=== PATIENT | female | born 1995 | race Caucasian/White ===

== ENCOUNTER 2016-11-12 10:21 | Inpatient (IN) | payer OTHER ==
[2016-11-12 11:25] VITALS: BMI 31.6
[2016-11-12] MEDS ORDERED: Lactated Ringer's 1,000 ML IV SCH ×2 (11:25→11:30)
--- NOTE | 2016-11-12 11:25 | OBADHP ---
Datetime: 11/12/2016 11:23 Admit Comment, IP Provider: 21yo edc 11/15 by 8wk us @ 39.4wks w/ c/o srom @ 8:45 and onset of c txs at same time. Pt is a late tranfer of care to DR Morris gynhx: LGSIL pmhx: denies pshx:denies nkda medic: pnv shx: denies etoh, drugs or tobacco I: 39+wks srom labor onset P: admit pt declines pain management Datetime: 11/12/2016 11:16 Pelvic Type - PN: Adequate Extremities - PN: Normal Abdomen - PN: Normal Back - PN: Normal Lungs - PN: Normal Heart - PN: Normal Neurologic - PN: Normal HEENT - PN: Normal Presentation-Admit: Vertex FHR - Baseline A Provider: 130 Amniotic Fluid Color, Provider: Clear Membranes, Provider: Ruptured Comments, ACOG Physical Exam: neg: gbs, hiv, rpr, hepB ri,vzi O+ Pool Provider: Positive Vital Signs Provider: Within Normal Limits IP Chief Complaint: Uterine contractions; Suspected ruptured membranes NICHD Variability Prov Fetus A: Moderate 6-25bpm NICHD Accel Fetus A IP Provider: [id number] NICHD Decel Fetus A IP Provider: None Dilatation, Provider: 3 Effacement, Provider: 70 Station, Provider: -2 IP Adm Impression: Term, intrauterine IP Admit Plan: Admit to unit; Initiate labor protocol
[2016-11-12] MEDS ORDERED: Oxytocin 30 units/LR 500ML 30 U/500 ML BAG IV ONE (11:34)
[2016-11-12] MEDS ORDERED: Lidocaine 1% Inj (20ml) ONE (11:35)
[2016-11-12 12:24] LABS: BASO % 0.1 % (0.0-2.0); EOS # 0.2 K/uL (0.0-0.7); EOS % 1.5 % (0.0-4.0); HEMOGLOBIN 12.5 g/dL (12.0-16.0); LYMPH # 1.8 K/uL (1.0-4.3); LYMPH % 16.1 % (20.0-40.0); MEAN CELL VOLUME 87.6 fl (81.0-99.0); MEAN CORPUSCULAR HGB CONC 34.3 g/dL (33.0-37.0); MEAN PLATELET VOLUME 8.7 fl (7.2-11.7); MONO # 0.7 K/uL (0.0-0.8); MONO % 6.6 % (0.0-10.0); NEUT # 8.3 K/uL (1.8-7.0); NEUT % 75.7 % (50.0-75.0); NRBC % 0.1 % (0.0-0.0); RBC 4.17 Mil/uL (3.80-5.20); RED CELL DISTRIBUTION WIDTH 13.6 % (11.5-14.5)
[2016-11-12] MEDS ORDERED: Fentanyl/Bupivacaine HCl 250 ML EPI ONE (16:44)
[2016-11-12] MEDS ORDERED: Bupivacaine HCl 0.25% PF (10 ml) Inj ONE (16:44)
--- NOTE | 2016-11-12 17:40 | OBPN ---
Datetime: 11/12/2016 17:35 IP Progress Impression: Normal progression of labor IP Informed Consent Obtain: Vaginal Delivery IP Procedures: Sterile Vag Exam IP Progress Plan: Continue present management Membranes, Provider: Ruptured Contraction Comments Provider: q 2 mins FHR - Baseline A Provider: 120 IP Progress Note Comment: Patient comfortable s/p epidural. VE=7/-1, Pitocin @ 8 mu/min VKB=190 mod velia, +accels, variable decels A/P 1. Continue pitocin for augmentation 2. CEFM and TOCO 3. Re-evaluate as needed Vital Signs Provider: Reviewed; Within Normal Limits NICHD Variability Prov Fetus A: Moderate 6-25bpm Dilatation, Provider: 7 Effacement, Provider: 90 Station, Provider: 0 NICHD Decel Fetus A IP Provider: Early Datetime: 11/12/2016 11:16 Pool Provider: Positive Amniotic Fluid Color, Provider: Clear Presentation-Admit: Vertex NICHD Accel Fetus A IP Provider: [id number]
--- NOTE | 2016-11-12 18:26 | OBPN ---
Datetime: 11/12/2016 18:16 IP Informed Consent Obtain: Vaginal Delivery IP Procedures: Sterile Vag Exam IP Progress Plan: Continue present management Contraction Comments Provider: q 2 mins FHR - Baseline A Provider: 120 IP Progress Note Comment: Patient had prolonged decel for 8 mins down to 90bpm, Pitocin stopped, pat ient given rescusitation with O2 and repositioning on right and left lateral side. Heart rate resumed to 120s moderate variability. Patient continues to contract q 2 mins, if heart rate continues to be non-reassuring, will give Terbutaline and possibly need to career technical counselor patient for . Explained t o patient the status-all questions answered Vital Signs Provider: Reviewed; Within Normal Limits NICHD Accel Fetus A IP Provider: [id number] NICHD Variability Prov Fetus A: Moderate 6-25bpm Dilatation, Provider: 9 Effacement, Provider: 100 Station, Provider: 1
[2016-11-12] MEDS ORDERED: Benzocaine/Menthol SPRAY TOP PRN (20:04)
[2016-11-12] MEDS ORDERED: Oxycodone/Acetaminophen 5/325 mg Tab PO PRN ×2 (20:04)
--- NOTE | 2016-11-12 20:09 | OBDS ---
MATERNAL INFORMATION Provider Comments: of live female over intact perineum, 6lbs 9oz, 9/9, followed by shoulders an d rest of in OMI presentation, mouth and nose suctioned, cord clamped and cut, cord blood obta ined, placenta delivered spontaneously, fundus firm, WHC=255iy, vaginal abraisions repaired with 3-0 vicryl rapide LABOR SUMMARY EDC: 11/15/2016 00:00 No. Babies in Womb: 1 LABOR INFORMATION Group B Beta Strep: Negative MEMBRANES Membranes Rupture Method: Spontaneous Rupture of Membranes: 11/12/2016 08:45 Amniotic Fluid Color: Clear Amniotic Fluid Amount: Moderate Amniotic Fluid Odor: Normal
[2016-11-13 07:36] LABS: BASO % 0.2 % (0.0-2.0); EOS # 0.1 K/uL (0.0-0.7); EOS % 0.7 % (0.0-4.0); HEMOGLOBIN 11.5 g/dL (12.0-16.0); MEAN CELL VOLUME 88.3 fl (81.0-99.0); MEAN CORPUSCULAR HEMOGLOBIN 29.3 pg (27.0-31.0); MEAN CORPUSCULAR HGB CONC 33.2 g/dL (33.0-37.0); MEAN PLATELET VOLUME 8.6 fl (7.2-11.7); MONO # 1.2 K/uL (0.0-0.8); MONO % 7.9 % (0.0-10.0); NEUT # 12.2 K/uL (1.8-7.0); NEUT % 78.2 % (50.0-75.0); RBC 3.93 Mil/uL (3.80-5.20); RED CELL DISTRIBUTION WIDTH 13.6 % (11.5-14.5); WHITE BLOOD COUNT 15.7 K/uL (4.8-10.8)
[2016-11-13] MEDS: Multivitamin With Minerals Tab PO SCH (09:29)
--- NOTE | 2016-11-13 23:29 | OBPPN ---
Datetime: 11/13/2016 23:26 PP Pain Prov: Within normal limits PP Nausea Prov: Denies PP Flatus Prov: Yes PP BM Prov: Yes PP Breasts Prov: Not Done PP Heart Prov: Normal PP Lungs Prov: Normal PP Abdomen/Uterus Prov: Normal PP Lochia Prov: Normal PP Vulva/Perineum Prov: Normal PP CVA Tenderness Prov: Normal PP Extremities Prov: Normal PP Progress Prov: Normal PP Impression Prov: Normal progression PP Plan Prov: Continue present management PP Progress Note Prov: S/P day 1 anticiapte discharge in AM Vital Signs Provider PP: Reviewed; Within Normal Limits
--- NOTE | 2016-11-14 09:21 | OBDCSUM ---
Datetime: 11/14/2016 08:43 Discharged to, Provider: home Follow up at, Provider: Tevin Cruz Disch Instr Activity: Normal activity Disch Instr Diet: Regular Discharge Instructions, Provider: Routine instructions given Discharge Diagnosis, Provider: Term Delivered Follow up in weeks, Provider: 6 weeks. Disch Referrals: None Contraception discussed, Prov: Yes Disch Activity Restrictions: No exercising Discharge Comment, Provider: doing well Contraception after Delivery: Undecided
--- NOTE | 2016-11-14 09:39 | OBPPN ---
Datetime: 11/14/2016 09:20 PP Pain Prov: Within normal limits PP Nausea Prov: Denies PP Flatus Prov: Yes PP Breasts Prov: Not Done PP Heart Prov: Normal PP Lungs Prov: Normal PP Abdomen/Uterus Prov: Normal PP Lochia Prov: Not Done PP Vulva/Perineum Prov: Not Done PP CVA Tenderness Prov: Not Done PP Extremities Prov: Normal PP Impression Prov: Normal progression PP Plan Prov: Discharge PP Progress Note Prov: doing well discharge home NPV motrin as needed Vital Signs Provider PP: Reviewed
[2016-11-14] MEDS: Multivitamin With Minerals Tab PO SCH (10:00)
== END 2016-11-14 15:50 | disposition home or self-care (01) | DRG 775 ==
LOC: H.EROB2 10:21 → H.L&D 11:25 → H.OB/GYN 23:13
PROVIDERS: ADMIT Obstetrics & Gynecology; ATTEND Obstetrics & Gynecology
PROC: 10E0XZZ Delivery of Products of Conception, External Approach (ICD-10-PCS; principal; 2016-11-12)
PROC: 4A1HXCZ Monitoring of Products of Conception, Cardiac Rate, External Approach (ICD-10-PCS; 2016-11-12)
DX: O76 Abnormality in fetal heart rate and rhythm complicating labor and delivery (principal); Z37.0 Single live birth; Z3A.39 39 weeks gestation of pregnancy